=== PATIENT | male | born 1960 | race Hispanic/Latino ===

== ENCOUNTER → 2023-04-07 | Outpatient (CLI) | payer OTHER ==
[2023-04-07 12:29] LABS: CREATININE 0.7 mg/dL (0.5-1.5)
== END | disposition home or self-care (01) ==
LOC: LAB 08:31
PROVIDERS: ATTEND Internal Medicine Cardiovascular Disease
DX: G45.9 Transient cerebral ischemic attack, unspecified (principal)
CPT/HCPCS: 36415; 82565; 84520

== ENCOUNTER → 2023-04-12 | Outpatient (CLI) | payer OTHER ==
[~2023-04-12] MED LIST: IOHEXOL 350 MG/ML 100ML INFUS..BTL IV ONE
== END | disposition home or self-care (01) ==
LOC: RAH 08:13 → EDUNIT# 10:00
PROVIDERS: ATTEND Internal Medicine Cardiovascular Disease
DX: I65.21 Occlusion and stenosis of right carotid artery (principal); I73.9 Peripheral vascular disease, unspecified; I25.10 Atherosclerotic heart disease of native coronary artery without angina pectoris; M47.815 Spondylosis without myelopathy or radiculopathy, thoracolumbar region
CPT/HCPCS: 75574; Q9967

== ENCOUNTER 2023-07-03 07:24 | Day surgery (SDC) | payer OTHER ==
[2023-06-30 12:29] VITALS: BP 151/69; PULSE 67; RESP 17
[2023-06-30 12:33] LABS: BASOPHILS # (AUTO) 0.05 K/uL (0.00-0.20); BASOPHILS % (AUTO) 0.7 % (0.0-5.0); EOSINOPHILS # (AUTO) 0.25 K/uL (0.00-0.70); EOSINOPHILS % (AUTO) 3.7 % (0.0-8.0); HEMATOCRIT 45.9 % (42-54); IMMATURE GRANULOCYTE ABSOLUTE 0.02 K/uL (0-1); LYMPHOCYTES # (AUTO) 2.4 K/uL (1.0-4.8); LYMPHOCYTES % (AUTO) 36.3 % (21.0-51.0); MEAN CORPUSCULAR HEMOGLOBIN 30.6 pg (27.0-33.0); MEAN CORPUSCULAR HGB CONC 32.2 g/dL (32.0-36.0); MONOCYTES # (AUTO) 0.6 K/uL (0.1-1.0); MONOCYTES % (AUTO) 8.2 % (3.0-13.0); NEUTROPHILS # (AUTO) 3.4 K/uL (1.8-7.7); NEUTROPHILS % (AUTO) 50.8 % (40.0-77.0); PLATELET COUNT (AUTO) 283 K/uL (130-400); RED BLOOD CELL COUNT(AUTO) 4.83 MIL/uL (4.50-6.20); RED CELL DISTRIBUTION WIDTH 12.6 % (11.0-15.5); WHITE BLOOD COUNT (AUTO) 6.7 K/uL (4.8-10.8)
[2023-06-30 12:42] LABS: CREATININE 0.8 mg/dL (0.5-1.5); POTASSIUM 4.6 mmol/L (3.5-5.1)
[2023-06-30 12:45] LABS: INR < 0.93 (0.85-1.15); PROTHROMBIN TIME 10.5 SEC (9.6-11.6)
[2023-06-30 12:54] LABS: APPEARANCE,URINE CLEAR (CLEAR); BILIRUBIN,URINE NEGATIVE (NEGATIVE); COLOR,URINE LIGHT-YELLOW (YELLOW); GLUCOSE, URINE (UA) >=1000 mg/dL (NEGATIVE); KETONES,URINE NEGATIVE (NEGATIVE); LEUKOCYTE ESTERASE ,URINE NEGATIVE Leu/uL (NEGATIVE); NITRATE,URINE NEGATIVE (NEGATIVE); OCCULT BLOOD,URINE NEGATIVE (NEGATIVE); PROTEIN,URINE NEGATIVE (NEGATIVE); UROBILINOGEN,URINE 0.2 mg/dL (0.2-1.0)
[2023-06-30 12:56] LABS: ADD UA MICROSCOPIC YES
[2023-06-30 12:57] LABS: SQUAMOUS EPITHELIAL CELL,UR RARE /HPF (0-2); WBC,URINE 0-1 /HPF (0-1)
[2023-06-30 13:01] LABS: B-TYPE NATRIURETIC PEPTIDE 10 pg/mL (0-100)
[2023-07-03] VITALS (12 sets, daily range): BP systolic 113–133; BP diastolic 61–74; PULSE 67–78; RESP 14–21
[~2023-07-03] VITALS: Ht 170.2 cm; Wt 81.4 kg
[~2023-07-03 07:24] MED LIST changes: +AEC81 PO; +AMLO-258 PO; +ATOR40TA71 PO; +CILO50TA2 PO; +CLOP-31 PO; +EMPA1TAB7 PO; +HYDR25TA PO; +INSU100I24 SQ; -IOHEXOL 350 MG/ML 100ML INFUS..BTL IV ONE; +LISI40TA9 PO; +METO50TA18 PO; +MULT-1258 PO; +SEMA2PEN SQ
[2023-07-03] MEDS ORDERED: 0.9%NACL 1000ML 1,000 ML IV ONE (07:43)
[2023-07-03] MEDS ORDERED: NITROGLYCERIN 50MG VIAL ONE (08:57)
[2023-07-03] MEDS ORDERED: SODIUM BICARB 50MEQ 50ML VIAL 50 ML ONE (08:57)
[2023-07-03] MEDS ORDERED: HEPARIN 10,000 UNIT/10ML (1,000 UNIT/ML) VIAL ONE ×2 (08:57→09:59)
[2023-07-03] MEDS ORDERED: NICARDIPINE 25MG INJ IV ONE (08:57)
[2023-07-03] MEDS ORDERED: LIDOCAINE HCL 400MG/20ML VIAL ONE (08:57)
[2023-07-03] MEDS ORDERED: IOHEXOL 350 MG/ML 100ML INFUS..BTL IV ONE ×2 (08:58→10:48)
[2023-07-03] MEDS ORDERED: SOLU-MEDROL 125MG VIAL ONE (09:09)
[2023-07-03] MEDS ORDERED: DiphenhydrAMINE HCL 50 MG/ML VIAL ONE (09:09)
[2023-07-03] MEDS ORDERED: MIDAZOLAM HCL 1 MG/ML 2ML VIAL ONE ×4 (09:17→12:07)
[2023-07-03] MEDS ORDERED: MEPERIDINE-PF 25 MG/ML SYG ONE ×4 (09:17→12:07)
[2023-07-03] MEDS ORDERED: IOHEXOL-350 50ML VIAL IV ONE (09:26)
[2023-07-03] MEDS ORDERED: 0.9%NACL 1000ML 1,000 ML IV SCH (13:30)
[2023-07-03] MEDS ORDERED: DEXTROSE 50%-WATER 50 ML DISP.SYRIN IV PRN (13:30)
[2023-07-03] MEDS ORDERED: INSULIN HUMULIN R 100 UNIT/ML 3ML ONE (13:49)
[2023-07-03] MEDS ORDERED: INSULIN HUMULIN R 100 UNIT/ML 3ML SQ SCH (16:30)
== END 2023-07-03 18:45 | disposition home or self-care (01) ==
LOC: DAH 07:24
PROVIDERS: ATTEND Internal Medicine Cardiovascular Disease
DX: I25.119 Atherosclerotic heart disease of native coronary artery with unspecified angina pectoris (principal); I10 Essential (primary) hypertension; E78.5 Hyperlipidemia, unspecified; E11.9 Type 2 diabetes mellitus without complications; Z80.9 Family history of malignant neoplasm, unspecified; Z80.0 Family history of malignant neoplasm of digestive organs; Z79.4 Long term (current) use of insulin; Z72.89 Other problems related to lifestyle; Z79.82 Long term (current) use of aspirin; Z79.84 Long term (current) use of oral hypoglycemic drugs; Z86.73 Personal history of transient ischemic attack (TIA), and cerebral infarction without residual deficits; Z91.041 Radiographic dye allergy status; Z82.49 Family history of ischemic heart disease and other diseases of the circulatory system; Z87.891 Personal history of nicotine dependence; Z79.899 Other long term (current) drug therapy
CPT/HCPCS: 80048; 83880; 85025; 85610; 85730; 81001; 36415; 71045; 93005; 0715T; 93458; 92921; 85347 ×3; 82948 ×2; C9600 ×2; C1761; J1815; C1769 ×6; C1725 ×4; C1874 ×4; C1887 ×3; C1894 ×2; A4649; Q9965 ×2; J1200; J3490 ×4; J7030; J2930; J1644 ×4; J2250 ×3; J2175 ×3; Q9967 ×2; A4215; A4222; A6260; A4221; A4663; A4216; A6206; A4606; A4223 ×3; 92920; 96360; 96361; 99156; 99157

== ENCOUNTER 2023-08-17 07:11 | Day surgery (SDC) | payer OTHER ==
[2023-08-15 08:36] LABS: BASOPHILS # (AUTO) 0.06 K/uL (0.00-0.20); BASOPHILS % (AUTO) 1.1 % (0.0-5.0); EOSINOPHILS # (AUTO) 0.24 K/uL (0.00-0.70); EOSINOPHILS % (AUTO) 4.5 % (0.0-8.0); HEMATOCRIT 42.6 % (42-54); IMMATURE GRANULOCYTE ABSOLUTE 0.01 K/uL (0-1); LYMPHOCYTES # (AUTO) 1.6 K/uL (1.0-4.8); LYMPHOCYTES % (AUTO) 30.4 % (21.0-51.0); MEAN CORPUSCULAR HEMOGLOBIN 30.5 pg (27.0-33.0); MEAN CORPUSCULAR HGB CONC 32.6 g/dL (32.0-36.0); MEAN CORPUSCULAR VOLUME 93.4 fL (79-99); MONOCYTES # (AUTO) 0.6 K/uL (0.1-1.0); MONOCYTES % (AUTO) 10.6 % (3.0-13.0); NEUTROPHILS # (AUTO) 2.8 K/uL (1.8-7.7); NEUTROPHILS % (AUTO) 53.2 % (40.0-77.0); PLATELET COUNT (AUTO) 259 K/uL (130-400); RED BLOOD CELL COUNT(AUTO) 4.56 MIL/uL (4.50-6.20); RED CELL DISTRIBUTION WIDTH 13.2 % (11.0-15.5); WHITE BLOOD COUNT (AUTO) 5.3 K/uL (4.8-10.8)
[2023-08-15 08:44] LABS: CREATININE 0.8 mg/dL (0.5-1.5); POTASSIUM 4.3 mmol/L (3.5-5.1)
[2023-08-15 08:46] LABS: INR < 0.93 (0.85-1.15); PROTHROMBIN TIME 10.3 SEC (9.6-11.6)
[2023-08-15 08:48] LABS: PARTIAL THROMBOPLASTIN TIME 26.5 SEC (26.3-35.5)
[2023-08-15 08:57] LABS: B-TYPE NATRIURETIC PEPTIDE 11 pg/mL (0-100)
[2023-08-15 09:08] VITALS: BP 135/74; PULSE 64; RESP 15
[2023-08-15 09:30] LABS: APPEARANCE,URINE CLEAR (CLEAR); BILIRUBIN,URINE NEGATIVE (NEGATIVE); COLOR,URINE LIGHT-YELLOW (YELLOW); GLUCOSE, URINE (UA) >=1000 mg/dL (NEGATIVE); KETONES,URINE NEGATIVE (NEGATIVE); LEUKOCYTE ESTERASE ,URINE NEGATIVE Leu/uL (NEGATIVE); NITRATE,URINE NEGATIVE (NEGATIVE); OCCULT BLOOD,URINE NEGATIVE (NEGATIVE); PROTEIN,URINE NEGATIVE (NEGATIVE); UROBILINOGEN,URINE 0.2 mg/dL (0.2-1.0)
[2023-08-15 09:32] LABS: ADD UA MICROSCOPIC YES
[2023-08-15 09:35] LABS: MUCUS,URINE RARE LPF (None Seen); WBC,URINE 0-1 /HPF (0-1)
[2023-08-17] VITALS (10 sets, daily range): BP systolic 121–140; BP diastolic 60–75; PULSE 56–70; RESP 12–17
[~2023-08-17] VITALS: Ht 170.2 cm; Wt 83.2 kg
[~2023-08-17 07:11] MED LIST changes: -CILO50TA2 PO
[2023-08-17] MEDS ORDERED: 0.9%NACL 1000ML 1,000 ML IV ONE (07:37)
[2023-08-17] MEDS ORDERED: SOLU-MEDROL 125MG VIAL IVP ONE ×2 (09:30→10:00)
[2023-08-17] MEDS ORDERED: DiphenhydrAMINE HCL 50 MG/ML VIAL IV ONE (09:30)
[2023-08-17] MEDS ORDERED: SODIUM BICARB 50MEQ 50ML VIAL 50 ML ONE (11:19)
[2023-08-17] MEDS ORDERED: MIDAZOLAM HCL 1 MG/ML 2ML VIAL ONE ×2 (11:19→11:43)
[2023-08-17] MEDS ORDERED: LIDOCAINE HCL 400MG/20ML VIAL ONE (11:19)
[2023-08-17] MEDS ORDERED: MEPERIDINE-PF 25 MG/ML SYG ONE ×2 (11:19→11:43)
[2023-08-17] MEDS ORDERED: IOHEXOL 350 MG/ML 100ML INFUS..BTL IV ONE (11:20)
[2023-08-17] MEDS ORDERED: HEPARIN 10,000 UNIT/10ML (1,000 UNIT/ML) VIAL ONE ×2 (11:20→12:55)
[2023-08-17] MEDS ORDERED: IOHEXOL-350 50ML VIAL IV ONE (11:20)
[2023-08-17] MEDS ORDERED: NICARDIPINE 25MG INJ IV ONE (11:36)
[2023-08-17] MEDS ORDERED: DEXTROSE 50%-WATER 50 ML DISP.SYRIN IV PRN (13:30)
[2023-08-17] MEDS ORDERED: 0.9%NACL 1000ML 1,000 ML IV SCH (13:30)
[2023-08-17] MEDS ORDERED: INSULIN HUMULIN R 100 UNIT/ML 3ML SQ SCH (16:30)
== END 2023-08-17 17:30 | disposition home or self-care (01) ==
LOC: DAH 07:11
PROVIDERS: ATTEND Internal Medicine Cardiovascular Disease
DX: I25.119 Atherosclerotic heart disease of native coronary artery with unspecified angina pectoris (principal); I25.82 Chronic total occlusion of coronary artery; E78.5 Hyperlipidemia, unspecified; I10 Essential (primary) hypertension; E11.51 Type 2 diabetes mellitus with diabetic peripheral angiopathy without gangrene; Z86.73 Personal history of transient ischemic attack (TIA), and cerebral infarction without residual deficits; Z79.4 Long term (current) use of insulin; Z82.49 Family history of ischemic heart disease and other diseases of the circulatory system; Z80.8 Family history of malignant neoplasm of other organs or systems; Z79.82 Long term (current) use of aspirin; Z79.02 Long term (current) use of antithrombotics/antiplatelets; Z79.01 Long term (current) use of anticoagulants
CPT/HCPCS: 80048; 83880; 85025; 85610; 85730; 81001; 36415 ×2; 71045; 93005; 92920; 93458; 85347 ×2; 82948; 93308; C1769 ×5; C1887 ×4; C1894; A4649; Q9965 ×2; C1725; J1200; J3490 ×3; J7030; J2930; J1644 ×3; J2250 ×2; J2175 ×2; Q9967; A4215; A4222; A4221; A4663; A4216; A4606; A4223 ×3; 99156; 99157

== ENCOUNTER → 2023-09-19 | Outpatient (CLI) | payer OTHER ==
[2023-09-19 13:38] LABS: CREATININE 0.8 mg/dL (0.5-1.5); POTASSIUM 4.5 mmol/L (3.5-5.1)
== END | disposition home or self-care (01) ==
LOC: LAB 09:24
PROVIDERS: ATTEND Internal Medicine Cardiovascular Disease
DX: I73.9 Peripheral vascular disease, unspecified (principal)
CPT/HCPCS: 36415; 80048

== ENCOUNTER → 2023-09-22 | Outpatient (CLI) | payer OTHER ==
[~2023-09-22] MED LIST changes: +IOHEXOL 350 MG/ML 100ML INFUS..BTL IV ONE
== END | disposition home or self-care (01) ==
LOC: RAH 07:39
PROVIDERS: ATTEND Internal Medicine Cardiovascular Disease
DX: I70.0 Atherosclerosis of aorta (principal); I73.9 Peripheral vascular disease, unspecified
CPT/HCPCS: 75635; Q9967

== ENCOUNTER 2023-10-18 08:23 | Observation (INO) | payer OTHER ==
[2023-10-16 11:55] LABS: BASOPHILS # (AUTO) 0.06 K/uL (0.00-0.20); BASOPHILS % (AUTO) 0.7 % (0.0-5.0); EOSINOPHILS # (AUTO) 0.14 K/uL (0.00-0.70); EOSINOPHILS % (AUTO) 1.7 % (0.0-8.0); HEMATOCRIT 43.5 % (42-54); IMMATURE GRANULOCYTE ABSOLUTE 0.03 K/uL (0-1); LYMPHOCYTES # (AUTO) 1.3 K/uL (1.0-4.8); LYMPHOCYTES % (AUTO) 16.5 % (21.0-51.0); MEAN CORPUSCULAR HEMOGLOBIN 30.7 pg (27.0-33.0); MEAN CORPUSCULAR HGB CONC 33.6 g/dL (32.0-36.0); MEAN CORPUSCULAR VOLUME 91.6 fL (79-99); MONOCYTES # (AUTO) 0.6 K/uL (0.1-1.0); MONOCYTES % (AUTO) 7.5 % (3.0-13.0); NEUTROPHILS # (AUTO) 5.9 K/uL (1.8-7.7); NEUTROPHILS % (AUTO) 73.2 % (40.0-77.0); PLATELET COUNT (AUTO) 275 K/uL (130-400); RED BLOOD CELL COUNT(AUTO) 4.75 MIL/uL (4.50-6.20); RED CELL DISTRIBUTION WIDTH 13.2 % (11.0-15.5); WHITE BLOOD COUNT (AUTO) 8.1 K/uL (4.8-10.8)
[2023-10-16 11:59] LABS: CREATININE 0.9 mg/dL (0.5-1.3); POTASSIUM 4.8 mmol/L (3.5-5.1)
[2023-10-16 12:02] LABS: INR <= 0.93 (0.85-1.15); PROTHROMBIN TIME 10.3 SEC (9.6-11.6)
[2023-10-16 12:04] LABS: PARTIAL THROMBOPLASTIN TIME 27.3 SEC (26.3-35.5)
[2023-10-16 12:14] LABS: B-TYPE NATRIURETIC PEPTIDE 11 pg/mL (0-100)
[2023-10-16 12:17] VITALS: BP 121/60; PULSE 75; RESP 15
[2023-10-16 12:31] LABS: APPEARANCE,URINE CLEAR (CLEAR); BILIRUBIN,URINE NEGATIVE (NEGATIVE); COLOR,URINE LIGHT-YELLOW (YELLOW); GLUCOSE, URINE (UA) >=1000 mg/dL (NEGATIVE); KETONES,URINE NEGATIVE (NEGATIVE); LEUKOCYTE ESTERASE ,URINE NEGATIVE Leu/uL (NEGATIVE); NITRATE,URINE NEGATIVE (NEGATIVE); OCCULT BLOOD,URINE NEGATIVE (NEGATIVE); PROTEIN,URINE NEGATIVE (NEGATIVE); UROBILINOGEN,URINE 0.2 mg/dL (0.2-1.0)
[2023-10-16 12:37] LABS: ADD UA MICROSCOPIC YES
[2023-10-16 12:40] LABS: MUCUS,URINE RARE LPF (None Seen); RBC,URINE 0-1 /HPF (0-1); WBC,URINE 0-1 /HPF (0-1)
[~2023-10-18] VITALS: Ht 172.7 cm; Wt 78.7 kg
[2023-10-18] VITALS (9 sets, daily range): BP systolic 111–148; BP diastolic 67–78; PULSE 61–75; RESP 14–18; O2SAT 100
[~2023-10-18 08:23] MED LIST changes: +CILO50TA2 PO; +DAILY FIBER PO; +INSU100V37 SQ; -IOHEXOL 350 MG/ML 100ML INFUS..BTL IV ONE
[2023-10-18] MEDS: 0.9%NACL 1000ML 1,000 ML IV ONE (09:19)
[2023-10-18] MEDS ORDERED: IODIXANOL 320 MG/ML 100 ML VIAL ONE ×2 (13:00→16:00)
[2023-10-18] MEDS ORDERED: HEPARIN 10,000 UNIT/10ML (1,000 UNIT/ML) VIAL ONE ×2 (13:00→15:07)
[2023-10-18] MEDS ORDERED: NITROGLYCERIN 50MG VIAL ONE (13:01)
[2023-10-18] MEDS ORDERED: LIDOCAINE HCL 400MG/20ML VIAL ONE (13:11)
[2023-10-18] MEDS ORDERED: DiphenhydrAMINE HCL 50 MG/ML VIAL ONE (13:18)
[2023-10-18] MEDS ORDERED: FAMOTIDINE 20MG VIAL IV ONE (13:19)
[2023-10-18] MEDS ORDERED: SOLU-MEDROL 125MG VIAL ONE (13:19)
[2023-10-18] MEDS ORDERED: SODIUM BICARB 50MEQ 50ML VIAL 50 ML ONE (13:25)
[2023-10-18] MEDS ORDERED: MEPERIDINE-PF 25 MG/ML SYG ONE ×3 (13:31→14:12)
[2023-10-18] MEDS ORDERED: MIDAZOLAM HCL 1 MG/ML 2ML VIAL ONE ×3 (13:31→14:12)
[2023-10-18] MEDS ORDERED: ALPRAZOLAM 0.5 MG TABLET PO PRN (17:00)
[2023-10-18] MEDS ORDERED: ACETAMINOPHEN WITH CODEINE 1 TAB TAB PO PRN (17:00)
[2023-10-18] MEDS: 0.9%NACL 1000ML 1,000 ML IV SCH (17:45)
[2023-10-18] MEDS: METOPROLOL TARTRATE 50 MG TAB PO SCH (20:35)
[2023-10-18] MEDS: ATORVASTATIN 40 MG TABLET PO SCH (20:35)
[2023-10-18] MEDS: DAILY FIBER PO SCH (20:38)
[2023-10-18] MEDS: INSULIN GLARGINE 100 UNITS/ML 10 ML VIAL SQ SCH (20:38)
[2023-10-19] VITALS: BP 113/59; PULSE 73; RESP 18
[2023-10-19 04:06] LABS: HEMATOCRIT 36.9 % (42-54); MEAN CORPUSCULAR HEMOGLOBIN 30.8 pg (27.0-33.0); MEAN CORPUSCULAR HGB CONC 33.6 g/dL (32.0-36.0); MEAN CORPUSCULAR VOLUME 91.6 fL (79-99); RED BLOOD CELL COUNT(AUTO) 4.03 MIL/uL (4.50-6.20); RED CELL DISTRIBUTION WIDTH 13.1 % (11.0-15.5)
[2023-10-19 04:33] LABS: CREATININE 0.9 mg/dL (0.5-1.3); POTASSIUM 4.5 mmol/L (3.5-5.1)
[2023-10-19 05:54] VITALS: BP 122/64; PULSE 72; RESP 18
[2023-10-19 07:00] VITALS: O2SAT 100
[2023-10-19] MEDS: ASPIRIN 81 MG EC TAB PO SCH (08:14)
[2023-10-19] MEDS: CLOPIDOGREL 75MG TAB PO SCH (08:15)
[2023-10-19] MEDS: HYDROCHLOROTHIAZIDE 25 MG TABLET PO SCH (08:15)
[2023-10-19] MEDS: AMLODIPINE 5 MG TAB PO SCH (08:15)
[2023-10-19] MEDS: LISINOPRIL 40 MG TABLET PO SCH (08:15)
[2023-10-19] MEDS: [UNRECOGNIZED DRUG - OTHER] PO SCH (08:22)
[2023-10-19] MEDS: LUT PO SCH (08:22)
[2023-10-19] MEDS: LYCOPENE PO SCH (08:22)
[2023-10-19] MEDS: MULTIVITS MIN PO SCH (08:22)
[2023-10-25] MEDS ORDERED: (Semaglutide (Ozempic) 2 MG) SQ SCH (09:00)
== END 2023-10-19 10:00 | disposition home or self-care (01) ==
LOC: DAH 08:23 → DAHIP 08:24 → DAH 08:24 → 2DH 17:41
PROVIDERS: ADMIT Internal Medicine; ATTEND Internal Medicine
DX: I73.9 Peripheral vascular disease, unspecified (principal); E11.65 Type 2 diabetes mellitus with hyperglycemia; E11.51 Type 2 diabetes mellitus with diabetic peripheral angiopathy without gangrene; E78.5 Hyperlipidemia, unspecified; I10 Essential (primary) hypertension; I25.10 Atherosclerotic heart disease of native coronary artery without angina pectoris; Z79.4 Long term (current) use of insulin; Z79.899 Other long term (current) drug therapy; Z68.26 Body mass index [BMI] 26.0-26.9, adult; Z86.73 Personal history of transient ischemic attack (TIA), and cerebral infarction without residual deficits; Z91.041 Radiographic dye allergy status; Z95.5 Presence of coronary angioplasty implant and graft
CPT/HCPCS: 80048 ×2; 83880; 85025; 85610; 85730; 81001; 36415 ×3; 71045; 93005; 75625; 75716; 37226; 37230; 96372; 96360; 96361 ×2; 85347 ×3; 82948 ×4; 85027; C1887 ×2; C1725 ×7; C1769 ×6; C1894 ×2; C1874 ×2; C1760; C1893; C9765; G0378 ×17; J1200; J3490 ×4; J7030; J2930; J1644 ×3; J2250 ×3; J1815; J2175 ×3; Q9967; A4215; A4223 ×3; A4222; A4221; A4663; A4216; A4606; 99156; 99157; C9764

== ENCOUNTER → 2024-05-24 | Outpatient (CLI) | payer OTHER ==
[~2024-05-24] MED LIST changes: -AMLO-258 PO; -CILO50TA2 PO; -CLOP-31 PO; +CLOP75TA32 PO; -DAILY FIBER PO; +FURO20TA6 PO; -HYDR25TA PO; -INSU100V37 SQ; -LISI40TA9 PO; +METO25 PO; -METO50TA18 PO; -MULT-1258 PO
== END | disposition home or self-care (01) ==
LOC: SHCH 08:11
PROVIDERS: ATTEND Internal Medicine Cardiovascular Disease
DX: I87.2 Venous insufficiency (chronic) (peripheral) (principal)
CPT/HCPCS: 93970

== ENCOUNTER → 2024-08-12 | Outpatient (CLI) | payer OTHER ==
[2024-08-12 12:26] LABS: EOSINOPHILS # (AUTO) 0.25 K/uL (0.00-0.70); EOSINOPHILS % (AUTO) 4.9 % (0.0-8.0); HEMATOCRIT 36.5 % (42-54); IMMATURE GRANULOCYTE ABSOLUTE 0.01 K/uL (0-1); LYMPHOCYTES # (AUTO) 1.6 K/uL (1.0-4.8); LYMPHOCYTES % (AUTO) 31.2 % (21.0-51.0); MEAN CORPUSCULAR HGB CONC 27.7 g/dL (32.0-36.0); MEAN CORPUSCULAR VOLUME 75.9 fL (79-99); MONOCYTES # (AUTO) 0.5 K/uL (0.1-1.0); MONOCYTES % (AUTO) 10.2 % (3.0-13.0); NEUTROPHILS # (AUTO) 2.6 K/uL (1.8-7.7); NEUTROPHILS % (AUTO) 51.5 % (40.0-77.0); PLATELET COUNT (AUTO) 356 K/uL (130-400); RED BLOOD CELL COUNT(AUTO) 4.81 MIL/uL (4.50-6.20); WHITE BLOOD COUNT (AUTO) 5.1 K/uL (4.8-10.8)
[2024-08-12 12:32] LABS: HEMOGLOBIN A1C 8.4 % (4.0-6.0)
[2024-08-12 12:46] LABS: ALBUMIN 3.7 g/dL (3.5-5.0); CREATININE 0.7 mg/dL (0.5-1.3); POTASSIUM 4.8 mmol/L (3.5-5.1); T4 (THYROXINE) 5.1 ug/dL (4.7-13.3); THYROID STIMULATING HORMONE 1.96 uIU/mL (0.36-3.74); TOTAL PROTEIN, SERUM 7.1 g/dL (6.0-8.3)
== END | disposition home or self-care (01) ==
LOC: LAB 08:38
PROVIDERS: ATTEND Internal Medicine Cardiovascular Disease
DX: I10 Essential (primary) hypertension (principal); I73.9 Peripheral vascular disease, unspecified
CPT/HCPCS: 36415; 80053; 80061; 83036; 84436; 84443; 84479; 85025

== ENCOUNTER 2025-03-09 12:49 | Emergency (ER) | payer OTHER ==
[~2025-03-09] VITALS: Ht 170.2 cm; Wt 80.7 kg
--- NOTE | 2025-03-09 13:49 | EKG ---
[facility] Test Date: 2025-03-09 Test Time: 13:46:00 Pat Name: ERIC EM Department: [facility] Room: Gender: M V [employer]: [id number] [phone] [id number] Requested By: JAMES STEVENSON Order Number: [id number] Reading MD: Olayinka Richard Measurements Intervals Joanna Rate: 62 P: 62 GA: 148 QRS: 89 QRSD: 132 T: 51 QT: 427 QTc: 435 Interpretive Statements Sinus rhythm IVCD, consider RBBB poor r wave progression Compared to ECG 04/19/2024 16:48:24 Myocardial infarct finding now present Ventricular premature complex(es) no longer present ST (T wave) deviation still present Electronically Signed On 03-09-2025 16:05:25 CDT by Olayinka Richard Please click the below link to view image of tracing.
[2025-03-09 13:51] LABS: IMMATURE GRANULOCYTE ABSOLUTE 0.02 K/uL (0-1); NUCLEATED RED BLOOD CELLS 0.0 % (0.0-0.19); PLATELET COUNT (AUTO) 248 K/uL (130-400); RED BLOOD CELL COUNT(AUTO) 5.21 MIL/uL (4.50-6.20); RED CELL DISTRIBUTION WIDTH 17.6 % (11.0-15.5); WHITE BLOOD COUNT (AUTO) 7.8 K/uL (4.8-10.8)
[2025-03-09 14:00] LABS: CREATININE 0.7 mg/dL (0.5-1.3); GLOMERULAR FILTR. RATE CALC 103.0 mL/min (>90); GLUCOSE,RANDOM 149.0 mg/dL (70-105); SODIUM SERUM 138.0 mmol/L (136-145); UREA NITROGEN, BLOOD 13.0 mg/dL (7-18)
[2025-03-09 14:02] LABS: INR 1.01 (0.85-1.15)
--- NOTE | 2025-03-09 14:32 | HMCIMG ---
EXAM: CR Chest, 1 View. CLINICAL HISTORY: Shortness of breath COMPARISON: X-ray chest 04/23/2024 FINDINGS: LUNGS: There is no mass, infiltrate, or acute pulmonary abnormality. PLEURAL SPACES: No pleural effusion or pneumothorax. MEDIASTINUM: The cardiomediastinal silhouette is within normal limits. Changes of median sternotomy BONES: No acute osseous abnormality. IMPRESSION: No acute cardiopulmonary pathology is evident. /[place]
[2025-03-09 16:46] VITALS: BP 146/74; PULSE 70; RESP 16; TEMP 98.1; O2SAT 98
--- NOTE | 2025-03-09 17:12 | ERN ---
General Chief Complaint: Hypertension Stated Complaint: HYPERTENSIVE Time Seen by MD: 13:25 Time Seen by Midlevel: 13:25 Source: patient History of Present Illness Initial Comments Patient is a 64-year-old male with a past medical history of type 2 diabetes, hyperlipidemia, and hypertension presenting to the emergency department for evaluation of high blood pressure. The patient was recently prescribed losartan but has been noncompliant with the over the last week. He started consistently taking his blood pressure medication the last three days however today he noticed a blood pressure of over 200 so he decided to report to the ER for further evaluation. Allergies: Coded Allergies: Iodinated Contrast Media (Unverified Allergy, Unknown, HIVES, 04/13/23) Home Meds Active Scripts Metoprolol Tartrate (Lopressor) 25 Mg Tab, 12.5 MG PO BID, #15 TAB 0 Refills Prov:JESSICA MENA MD 04/24/24 Furosemide (Lasix 20Mg Tab) 20 Mg Tablet, 20 MG PO Q12H, #60 TAB 0 Refills Prov:JESSICA MENA MD 04/24/24 Reported Medications Clopidogrel Bisulfate (Clopidogrel) 75 Mg Tablet, 75 MG PO DAILY, TAB 04/18/24 Atorvastatin Calcium (Atorvastatin Calcium) 40 Mg Tablet, 40 MG PO HS, TAB 06/30/23 Aspirin (ASPIRIN 81 MG ECTAB) 81 Mg Ectab, 81 MG PO AM, TAB.EC 06/30/23 Empagliflozin/Metformin HCl (Synjardy 12.5-1,000 mg Tablet) 12.5 Mg-1,000 Mg Tablet, 1 EACH PO BID, TAB 06/30/23 Semaglutide (Ozempic) 2 Mg/0.75 Ml (8 Mg/3 Ml) Pen.injctr, 2 MG SQ QWEEK 06/30/23 Insulin Degludec (Tresiba Flextouch U-100) 100 Unit/Ml (3 Ml) Insuln.pen, 52 UNIT SQ HS, SYRINGE 06/30/23 Past Medical History Past Medical History: Diabetes-Type II, High Cholesterol, Hypertension Past Surgical History: CABG, Other Surgical History Other: RT LEG STENT ROS Dictation CONSTITUTIONAL: Negative except for HPI HEAD/FACE: Negative except for HPI EENT: Negative except for HPI RESPIRATORY: Negative except for HPI GASTROINTESTINAL/ABDOMINAL: Negative except for HPI GENITOURINARY: Negative except for HPI MUSCULOSKELETAL: Negative except for HPI INTEGUMENTARY: Negative except for HPI NEUROLOGICAL/PSYCH: Negative except for HPI HEMATOLOGIC/LYMPHATIC: Negative except for HPI All Systems Negative, Except as noted above. 13 point review of systems assessed and all negative except for above. Physical Exam Physical Exam Dictation PHYSICAL EXAM: GENERAL: alert,, awake oriented x 3 HEENT: EOMI, Sclera non icteric, moist mucosa NECK: Supple, no JVD, trachea midline LUNGS: Clear breath sounds bilaterally. No wheezes HEART: Regular rate and rhythm. Normal S1 and S2, without murmurs ABD: Abdomen soft, nontender. Bowel sounds present EXT: No clubbing or cyanosis, NEURO: Alert and oriented to person, follows commands Results Laboratory and Microbiology Lab and Micro Result Laboratory Tests Test 03/09/25 13:43 White Blood Count 7.8 K/uL (4.8-10.8) Red Blood Count 5.21 MIL/uL (4.50-6.20) Hemoglobin 14.9 g/dL (14.0-18.0) Hematocrit 46.7 % (42-54) Mean Corpuscular Volume 89.6 fL (79-99) Mean Corpuscular Hemoglobin 28.6 pg (27.0-33.0) Mean Corpuscular Hemoglobin Concent 31.9 g/dL (32.0-36.0) L Red Cell Distribution Width 17.6 % (11.0-15.5) H Platelet Count 248 K/uL (130-400) Mean Platelet Volume 9.8 fL (7.5-10.5) Immature Granulocyte % (Auto) 0.3 % (0-1) Neutrophils (%) (Auto) 60.4 % (40.0-77.0) Lymphocytes (%) (Auto) 23.9 % (21.0-51.0) Monocytes (%) (Auto) 7.3 % (3.0-13.0) Eosinophils (%) (Auto) 7.5 % (0.0-8.0) Basophils (%) (Auto) 0.6 % (0.0-5.0) Neutrophils # (Auto) 4.7 K/uL (1.8-7.7) Lymphocytes # (Auto) 1.9 K/uL (1.0-4.8) Monocytes # (Auto) 0.6 K/uL (0.1-1.0) Eosinophils # (Auto) 0.58 K/uL (0.00-0.70) Basophils # (Auto) 0.05 K/uL (0.00-0.20) Absolute Immature Granulocyte (auto 0.02 K/uL (0-1) Nucleated Red Blood Cells 0.0 % (0.0-0.19) Prothrombin Time 10.7 SEC (9.6-11.6) Prothromb Time International Ratio 1.01 (0.85-1.15) Activated Partial Thromboplast Time 26.1 SEC (26.3-35.5) L Sodium Level 138 mmol/L (136-145) Potassium Level 4.2 mmol/L (3.5-5.1) Chloride Level 101 mmol/L (101-111) Carbon Dioxide Level 28 mmol/L (21-32) Blood Urea Nitrogen 13 mg/dL (7-18) Creatinine 0.7 mg/dL (0.5-1.3) Glomerular Filtration Rate Calc 103 mL/min (>90) Random Glucose 149 mg/dL (70-105) H Total Calcium 9.0 mg/dL (8.5-10.1) Troponin I High Sensitivity 12 ng/L (4-75) Labs Reviewed?: Yes MDM MDM: Patient is a 64-year-old male with a past medical history of type 2 diabetes, hyperlipidemia, and hypertension presenting to the emergency department for evaluation of high blood pressure. The patient was recently prescribed losartan but has been noncompliant with the over the last week. He started consistently taking his blood pressure medication the last three days however today he noticed a blood pressure of over 200 so he decided to report to the ER for further evaluation. On physical examination the patient is alert and oriented x4. He has a GCS of 15. Patient is ambulatory with a normal gait without assistance. Cardiac workup was initiated which appears to be unremarkable. Cardiac enzymes are negative. EKG does not show any evidence of a heart attack. No need for CT scan at this time given unremarkable physical examination. While in the emergency department the patient has been sitting comfortably on his phone. No red flag symptoms noted. We will discharged home with close outpatient follow up. Differential diagnosis: Uncontrolled hypertension, hypertensive urgency, hypertensive emergency There are no social concerns with this patient. Prescription drug management Prescriptions will include: None Medical management and examination interpretation discussions were had by me with other qualified healthcare professionals as indicated for the patient's care. ED Course Orders Procedure Category Date Status Time 12 Lead Ekg Tracing- EKG 03/09/25 Resulted Technical 13:34 Cbc With Differential LAB 03/09/25 Complete 13:34 Basic Metabolic Panel LAB 03/09/25 Complete 13:34 Pt And Ptt LAB 03/09/25 Complete 13:34 Troponin I High LAB 03/09/25 Complete Sensitivity 13:34 Chest 1vw RAD 03/09/25 Resulted 13:34 Hydralazine 20mg Inj PHA 03/09/25 In Process (Apresoline 20mg In 16:30 Current Medications Medications (Trade) Dose Ordered Sig/Calderon Route PRN Reason Start Time Stop Time Status Last Admin Dose Admin Hydralazine HCl (APRESOLine 20MG INJ) 10 mg ONCE IV 03/09/25 16:30 03/09/25 20:30 03/09/25 16:30 Vital Signs Date Time Temp Pulse Resp B/P (MAP) Pulse Ox O2 Delivery O2 Flow Rate FiO2 03/09/25 16:46 98.1 70 16 146/74 98 Room Air* 0 03/09/25 16:10 98.1 59 16 191/90 98 Room Air* 0 21 03/09/25 14:24 98.1 61 16 184/84 98 Room Air* 0 03/09/25 13:54 98.1 64 16 190/72 98 Room Air* 0 03/09/25 12:55 97.5 65 18 196/75 97 Room Air 0 DX & DISP Disposition: Discharge Departure Impression: Primary Impression: Uncontrolled hypertension Condition: Stable Additional Instructions: Your blood work today is unremarkable. Your cardiac enzymes are negative. Your chest x-ray is normal. Your EKG does not show any evidence of a heart attack. Your please continue taking your blood pressure medication as prescribed. Please follow up with your primary care doctor. You may need adjustments in your blood pressure medication. Referrals: IVAN PÉREZ (PCP) Time of Disposition: 17:01 I have reviewed the case, and I agree with, Diagnosis and Plan I performed the substantive portion of the visit. I have reviewed and personally made and approve the management plan that is documented in the note by myself or the NIKI. I acknowledge for responsibility for the patient's management plan. IVAN QUINTERO Mar 09, 2025 17:12
== END 2025-03-09 17:24 | disposition home or self-care (01) ==
LOC: EDH 12:49
DX: I10 Essential (primary) hypertension (principal); E11.9 Type 2 diabetes mellitus without complications; E78.00 Pure hypercholesterolemia, unspecified; Z79.02 Long term (current) use of antithrombotics/antiplatelets; Z79.84 Long term (current) use of oral hypoglycemic drugs; Z79.85 Long-term (current) use of injectable non-insulin antidiabetic drugs; Z79.899 Other long term (current) drug therapy; Z91.041 Radiographic dye allergy status; Z95.1 Presence of aortocoronary bypass graft
CPT/HCPCS: 99285; 96374; 71045; 84484; 80048; 85025; 85610; 85730; 36415; 93005; J0360